=== PATIENT | female | born 1995 | race Two or more races ===

== ENCOUNTER 2025-06-08 02:50 | Emergency (ER) | payer OTHER ==
[~2025-06-08] VITALS: Ht 175.3 cm; Wt 90.7 kg
[2025-06-08 02:55] VITALS: BP 127/78
[2025-06-08 04:03] VITALS: BP 124/74; O2SAT 97
== END 2025-06-08 04:04 | disposition home or self-care (01) ==
LOC: ER 02:55
DX: S09.90XA Unspecified injury of head, initial encounter (principal); F17.290 Nicotine dependence, other tobacco product, uncomplicated; F11.90 Opioid use, unspecified, uncomplicated; W19.XXXA Unspecified fall, initial encounter; Y93.89 Activity, other specified; Y92.89 Other specified places as the place of occurrence of the external cause; Y99.9 Unspecified external cause status
CPT/HCPCS: 70450; 72125; A4606; A4663